=== PATIENT | male | born 1955 | race Caucasian/White ===

== ENCOUNTER → 2018-03-04 09:27 | Outpatient (BNVA) | payer MEDICARE, SELFPAY | PROVIDERS: PCP Nurse Practitioner Family; Visit Provider Student in an Organized Health Care Education/Training Program | DX: M25.552 Pain in left hip (principal); Z96.642 Presence of left artificial hip joint | CPT/HCPCS: 99213 ==

== ENCOUNTER 2018-03-25 16:58 | Outpatient (CLI) | payer MEDICARE, SELFPAY ==
--- NOTE | 2018-03-25 15:25 | DI.CTLCSR_ITS ---
SYMPTOM/DIAGNOSIS: COPD, J44.9. CURRENT SMOKER F17.[address] LUNG CANCER SCREENING PROTOCOL: 03/25 CT examination of the chest was performed utilizing low dose lung cancer screening protocol. Images obtained through the upper abdomen show previous cholecystectomy and unremarkable appearance of visualized portions of kidneys, adrenals, liver, spleen and pancreas. No gross mediastinal adenopathy or mass identified on this noncontrast study. Thoracic aorta is of normal diameter. Tracheobronchial tree appears intact. Mild bilateral apical pleural scarring noted and minimal pulmonary parenchymal scarring is noted predominantly in the lung bases as well. There appears to be mild diffuse central lobular emphysema. No suspicious intrapulmonary nodule identified. No significant change in appearance in comparison with previous examination of 04/05/2017. Presumed 3 mm intrapulmonary lymph node is again noted associated with the minor fissure on the right. CONCLUSION: No new intrapulmonary nodule. Category 1, continual annual screening with LDCT in 12 months. Lung-RAD Category: Lung RADS Category 1- Negative
== END 2018-03-25 17:18 ==
PROVIDERS: PCP Nurse Practitioner Family; Visit Provider Internal Medicine
DX: Z12.2 Encounter for screening for malignant neoplasm of respiratory organs (principal); J44.9 Chronic obstructive pulmonary disease, unspecified; F17.210 Nicotine dependence, cigarettes, uncomplicated; J43.9 Emphysema, unspecified; J98.4 Other disorders of lung; R59.0 Localized enlarged lymph nodes
CPT/HCPCS: G0297

== ENCOUNTER 2018-04-27 22:27 | Emergency (ER) | payer MEDICARE, SELFPAY ==
[2018-04-27 22:46] VITALS: BP 145/75; PULSE 76; RESP 18; TEMP 36.6; O2SAT 95
--- NOTE | 2018-04-27 22:52 | ED.GENADUL_ITS ---
Discharge Plan Disposition Patient Disposition: HOME Condition: Improving Discharge Details Chief Complaint: Trauma Clinical Impression: Contusion of left chest wall Primary Care Provider: Cathy Elliott ED Provider: Trent Unger Home Meds and New Rx's Prescriptions: Continue venlafaxine [Effexor XR] 75 MG capsule,extended release 24hr 75 mg PO DAILY RF: 0 losartan 50 MG tablet 50 mg PO DAILY RF: 0 trazodone 50 MG tablet 2 tab PO HS RF: 0 simvastatin 20 MG tablet 20 mg PO DAILY RF: 0 ropinirole 0.5 MG tablet 0.5 mg PO HS RF: 0 zolpidem [Ambien] 10 MG tablet 0.5 mg PO HS RF: 0 albuterol sulfate [ProAir HFA] 8.5 GM HFA aerosol inhaler 2 puff Inhalation Q6H PRN RF: 0 omeprazole [Prilosec] 10 MG capsule,delayed release(DR/EC) 20 mg PO DAILY RF: 0 montelukast [Singulair] 10 MG tablet 10 mg PO DAILY RF: 0 fluticasone propionate (bulk) 100 GM powder 100 gm Miscellaneous DAILY RF: 0 omeprazole 20 MG capsule,delayed release(DR/EC) 40 mg PO DAILY RF: 0 lamotrigine 100 MG tablet 100 mg PO DAILY RF: 0 magnesium oxide 500 MG capsule 500 mg PO DAILY RF: 0 vacuum erection device system [Rapport Vacuum Therapy] 1 EACH kit 1 ea Miscellaneous PRN Qty: 1 RF: 0 calcium carbonate [Tums] 300 MG tablet,chewable 1,000 mg PO DAILY RF: 0 acetaminophen 500 MG tablet 1,000 mg PO BID RF: 0 montelukast [Singulair] 10 MG tablet 10 mg PO DAILY RF: 0 inhalational spacing device [Aerochamber MV] 1 EACH spacer 1 ea Miscellaneous RF: 0 aspirin 81 MG tablet,chewable 81 mg PO DAILY RF: 0 Discharge Instructions Instructions: Contusion in Adults (ED) Additional Instructions: Return if you develop a fever, difficulty breathing, worsening pain or any other acute concerns. May use ibuprofen as needed for discomfort. May use the provided hydrocodone, if needed for breakthrough pain. Medical Decision Making 62-year-old male presents from home with left the rectal abdomen pain after slip and fall with blunt trauma. Has unremarkable vital signs but tender in the left chest and abdomen. Differential diagnosis includes contusion, rib fracture, underlying visceral injury such as splenic laceration. Patient had IV access established, given parenteral analgesia, referred for laboratory testing and CT images. Patient labs are essentially unremarkable. CT does not show any acute bony thoracic or visceral injury. Patient's pain is improved. He is stable and appropriate for outpatient management of left chest wall contusion. Discussed return precautions to the ER with the patient and his prior to discharge. Lab Data Lab results reviewed: Yes I reviewed the patient's lab results. Laboratory Tests Range/Units 04/27/18 04/27/18 23:20 23:20 WBC (4.4-10.8) k/cumm 9.46 RBC (4.50-6.00) m/cumm 4.43 L Hgb (13.5-17.5) g/dL 14.3 Hct (40.0-50.0) % 42.9 MCV (80-95) fL 96.8 H MCH (27.0-33.0) pg 32.3 MCHC (32.0-36.0) g/dL 33.3 RDW (11.8-14.1) % 12.7 Plt Count (130-400) x1000/uL 418 H MPV (8.0-11.0) fL 8.6 Immature Gran % 0.0 Neutrophils % 53.0 Lymphocytes % 18.0 Monocytes % 10.0 Eosinophils % 5.0 Basophils % 0.0 Absolute Neutrophils (1.2-6.7) k/cumm 5.01 Band Neutrophils % 0.0 Absolute Lymphocytes (1.2-3.4) k/cumm 3.03 Absolute Monocytes (0.11-0.7) k/cumm 0.95 H Absolute Eosinophils (0.0-0.7) k/cumm 0.47 Absolute Basophils (0.0-0.2) k/cumm 0.00 Differential Comment Manual differential Atypical Lymphocytes 14 RBC Morphology Normal Sodium (136-145) mmol/L 141 Potassium (3.5-5.1) mmol/L 3.6 Chloride (98-107) mmol/L 103 Carbon Dioxide (21.0-32.0) mmol/L 28.0 Anion Gap (3-11) mmol/L 10.0 BUN (7-18) mg/dL 7 Creatinine (0.70-1.30) mg/dL 1.35 H Estimated GFR/1.73 m2 (mL/min/1.73m2) 53.73 Glucose (70-100) mg/dL 96 Calcium (8.5-10.1) mg/dL 8.9 Total Bilirubin (0.2-1.0) mg/dL 0.2 AST (15-37) U/L 43 H ALT (12-78) U/L 58 Alkaline Phosphatase (46-116) U/L 97 Total Protein (6.4-8.2) g/dL 7.4 Albumin (3.4-5.0) g/dL 3.3 L HPI General Mode of arrival: ambulatory . Date/Time Provider Initiated Documentation: 04/27/18 22:28 . Limitations to Documentation: no limitations . Information obtained by: patient . History of Present Illness 62 year old M presents to the emergency department with the chief complaint of Blunt trauma left side,, described as moderate, Quality is described as aching, and is localized to the chest and abdomen. Patient abdomen. Patient started experiencing this hour(s) and it has been constant. No relieving factors improve symptom(s), Movement worsens symptoms . HPI Narrative: 62-year-old male presents after slip and fall at home. He slipped on the white line and fell onto his left side and slowly developed moderate left-sided achy chest and abdomen pain that is been worse with movement. Related Data Home Medications Medication Instructions Recorded Confirmed albuterol sulfate [ProAir HFA] 2 puff INHALATION Q6H PRN inhaler 06/10/1404/28 losartan 50 mg PO DAILY tab-cap 06/10/14 04/28/18 ropinirole 0.5 mg PO HS 06/10/14 04/28/18 simvastatin 20 mg PO DAILY tab-cap 06/10/14 04/28/18 trazodone 2 tab PO HS 06/10/14 04/28/18 venlafaxine [Effexor XR] 75 mg PO DAILY tab-cap 06/10/14 04/28/18 zolpidem [Ambien] 0.5 mg PO HS 06/10/14 04/28/18 omeprazole [Prilosec] 20 mg PO DAILY tab-cap 11/11/14 04/28/18 fluticasone propionate (bulk) 100 gm MISCELLANEOUS DAILY 11/13/14 04/28/18 montelukast [Singulair] 10 mg PO DAILY tab-cap 11/13/14 04/28/18 lamotrigine 100 mg PO DAILY tab-cap 02/13/17 04/28/18 magnesium oxide 500 mg PO DAILY 02/13/17 04/28/18 omeprazole 40 mg PO DAILY tab-cap 02/13/17 04/28/18 vacuum erection device system #1 kit 04/24/17 [Rapport Vacuum Therapy] acetaminophen 1,000 mg PO BID tab-cap 11/20/17 04/28/18 calcium carbonate [Tums] 1,000 mg PO DAILY tab.chew 11/20/17 04/28/18 inhalational spacing device 11/20/17 [Aerochamber MV] montelukast [Singulair] 10 mg PO DAILY tab-cap 11/20/17 04/28/18 aspirin 81 mg PO DAILY tab-cap 11/27/17 04/28/18 Previous Rx's Medication Instructions Recorded vacuum erection device system #1 kit 04/24/17 [Rapport Vacuum Therapy] Allergies Allergy/AdvReac Type Severity Reaction Status Date / Time naproxen sodium [From Aleve] Allergy Intermediate itching/redness/difficulty Unverified 04/28/18 00:12 breathing varenicline tartrate Allergy Unverified 04/28/18 00:12 [From Chantix] lisinopril AdvReac renal Unverified 04/28/18 00:12 changes General Stated Complaint: Trauma TERESSA: 3 Review of Systems Review of Systems 8 systems reviewed and otherwise neg [facility] Medical History Abdominal aortic aneurysm Social History Smoking/Tobacco Use Status: Current every day Surgical History Cholecystectomy Cranial Aneurysm clipping EGD - MAC (06/14/16) Rt shoulder surgery for pinched nerve hernia/groin repair in teens Exam Narrative Exam Narrative: GEN: awake, alert, oriented 3. Pleasant, well groomed, interactive. HEAD: Normocephalic, atraumatic ENT: Mucous membranes moist, oropharynx unremarkable, External ear exam unremarkable EYES: PERRL, EOMI NECK: Full ROM, no LALA, no menigismus CHEST/RESP: Left lateral chest wall tender to palpation, clear to auscultation bilateral, no wheeze/rhonchi/rales CARDIOVASCULAR: RRR, no murmur, rub alex. 2+ Rad pulse bilateral ABDOMEN: Soft, tender in the left abdomen, no mass. +Bowel sounds EXT: Full ROM, no edema, no rash Neuro: Grossly normal neurologic exam, conversant, interactive. Psych: Speech fluent, thoughts congruent, affect normal Course Vital Signs Temperature 36.6 C 04/27/18 22:46 Pulse 76 04/27/18 22:46 Respiratory Rate 18 04/27/18 22:46 Blood Pressure 145/75 H 04/27/18 22:46 Pulse Oximetry 95 04/27/18 22:46 Temperature 36.6 C 04/27/18 22:46 Temperature Source Temporal Artery Scan 04/27/18 22:46 Pulse 76 04/27/18 22:46 Respiratory Rate 18 04/27/18 22:46 Blood Pressure 145/75 H 04/27/18 22:46 Blood Pressure Position Supine 04/27/18 22:46 Pulse Oximetry 95 04/27/18 22:46 Oxygen Delivery Method Room Air 04/27/18 22:46 Oxygen Flow Rate 0 04/27/18 22:46 Pain Level 8 04/27/18 22:46
[2018-04-27] MEDS: MORPHine 10 MG/ML VIAL 2 MG IVP (23:20)
[2018-04-27 23:31] LABS: Abs Immature Grans 0.03 k/cumm (0.0-0.09); HCT 42.9 % (40.0-50.0); HGB 14.3 g/dL (13.5-17.5); Mean Corp. HGB Concentration 33.3 g/dL (32.0-36.0); Mean Corpuscular Hemoglobin 32.3 pg (27.0-33.0); Mean Corpuscular Volume 96.8 fL (80-95); Mean Platelet Volume 8.6 fL (8.0-11.0); Platelet Count 418 x1000/uL (130-400); RBC 4.43 m/cumm (4.50-6.00); RBC Distribution Width 12.7 % (11.8-14.1); White Blood Cell Count 9.46 k/cumm (4.4-10.8)
[2018-04-27] MEDS: Lactated Ringers 1,000 ML 100 ML IV (23:34)
[2018-04-27 23:46] LABS: ALT 58 U/L (12-78); AST 43 U/L (15-37); Albumin 3.3 g/dL (3.4-5.0); Alkaline Phosphatase 97 U/L (46-116); BUN 7 mg/dL (7-18); Bilirubin, Total 0.2 mg/dL (0.2-1.0); CREATININE 1.35 mg/dL (0.70-1.30); Calcium 8.9 mg/dL (8.5-10.1); Chloride 103 mmol/L (98-107); Estimated GFR 53.73 (mL/min/1.73m2); Glucose 96 mg/dL (70-100); Potassium 3.6 mmol/L (3.5-5.1); Sodium 141 mmol/L (136-145); Total Protein 7.4 g/dL (6.4-8.2)
--- NOTE | 2018-04-27 23:50 | DI.CT_ITS ---
SYMPTOM/DIAGNOSIS: FALL, BLUNT TRAUMA, LT THORACO-ABDOMINAL PAIN CT CHEST, ABDOMEN AND PELVIS: CT scan of the chest, abdomen and pelvis was performed following the uneventful administration of intravenous contrast material. Comparison 03/25/18 and 12/13/17. The liver is normal in size. No evidence of an hepatic mass or ulceration is seen. The portal and superior mesenteric veins are patent. The patient is status post cholecystectomy. No biliary ductal dilatation is present./ The pancreas, spleen and adrenal glands are unremarkable. The kidneys show normal and symmetric enhancement. No solid renal mass, obstruction or laceration is identified. The urinary bladder is intact. The prostate gland is grossly unremarkable. The bowel is unremarkable. There is a normal appendix present. There is atherosclerosis of the abdominal aorta. There is 3.5 cm infra renal abdominal aortic aneurysm. No significant abdominal or pelvic adenopathy, ascites or pneumoperitoneum is present. The patient has a left total hip replacement which does cause artifact in the pelvis. No fracture is identified. IMPRESSION: 1. No evidence of an acute abdominal or pelvic injury. 2. 3.5 cm infra renal abdominal aortic aneurysm. CT CHEST: There is atherosclerosis of the thoracic aorta but no aneurysmal dilatation or dissection. Heart size is within normal limits. No significant pericardial effusion is seen. Coronary artery calcifications are present. No significant thoracic adenopathy is present. No pleural effusion or pneumothorax is identified. Dependent atelectatic changes are seen in the lungs. Emphysematous changes are present in the lungs. No focal consolidating infiltrates are seen. No fractures are seen. IMPRESSION: No evidence of acute thoracic injury.
[2018-04-27 23:54] LABS: Absolute Neutrophil Count 5.01 k/cumm (1.2-6.7)
[2018-04-27 23:55] LABS: Absolute Eosinophil Count 0.47 k/cumm (0.0-0.7); Absolute Lymphocyte Count 3.03 k/cumm (1.2-3.4); Absolute Monocyte Count 0.95 k/cumm (0.11-0.7); Atypical Lymphocytes % 14; Diff Comment Manual Differential; RBC Morphology Normal
[2018-04-28 01:05] VITALS: BP 134/72; PULSE 77; RESP 16; O2SAT 95
--- NOTE | 2018-04-28 01:18 | DI.VRAD_ITS ---
EXAM: CT Chest With Intravenous Contrast EXAM DATE/TIME: 04/27/2018 10:50 PM CLINICAL HISTORY: 62 years old, male; Injury or trauma; Fall; Initial encounter; Abrasion; Patient HX: S/P fall hit ground, left thoraco-abdomen pain. Known aneurysm TECHNIQUE: Axial computed tomography images of the chest with intravenous contrast. All CT scans at this facility use at least one of these dose optimization techniques: automated exposure control; mA and/or kV adjustment per patient size (includes targeted exams where dose is matched to clinical indication); or iterative reconstruction. Coronal and sagittal reformatted images were created and reviewed. CONTRAST: 100 ml of OMNI-PAQUE 350 administered intravenously. COMPARISON: No relevant prior studies available. FINDINGS: Lungs: Paraseptal emphysema. Severe centrilobular emphysema. There is bilateral apical pleural and/or parenchymal scarring. Pleural space: Normal. No pneumothorax. No pleural effusion. Heart: Severe calcified coronary artery disease. Aorta: Calcification of the thoracic aorta and/or great vessels consistent with atherosclerotic vessel disease. Lymph nodes: Unremarkable. No enlarged lymph nodes. Bones/joints: Unremarkable. No acute fracture. Soft tissues: Unremarkable. IMPRESSION: 1. Paraseptal emphysema. 2. Severe centrilobular emphysema. 3. Severe calcified coronary artery disease. EXAM: CT Abdomen and Pelvis With Intravenous Contrast EXAM DATE/TIME: 04/27/2018 10:50 PM CLINICAL HISTORY: 62 years old, male; Injury or trauma; Fall; Initial encounter; Abrasion; Patient HX: S/P fall hit ground, left thoraco-abdomen pain. Known aneurysm TECHNIQUE: Axial computed tomography images of the abdomen and pelvis with intravenous contrast. All CT scans at this facility use at least one of these dose optimization techniques: automated exposure control; mA and/or kV adjustment per patient size (includes targeted exams where dose is matched to clinical indication); or iterative reconstruction. Coronal and sagittal reformatted images were created and reviewed. CONTRAST: 100 ml of OMNI-PAQUE 350 administered intravenously. COMPARISON: No relevant prior studies available. FINDINGS: Lower thorax: No acute findings. ABDOMEN: Liver: Normal. No mass. Gallbladder and bile ducts: Surgical clips in the gallbladder fossa consistent with cholecystectomy. Pancreas: Normal. No ductal dilation. Spleen: Normal. No splenomegaly. Adrenals: Normal. No mass. Kidneys and ureters: Normal. No hydronephrosis. Stomach and bowel: Normal. No obstruction. No mucosal thickening. Appendix: No evidence of appendicitis. PELVIS: Bladder: Unremarkable as visualized. Reproductive: Unremarkable as visualized. ABDOMEN and PELVIS: Intraperitoneal space: Normal. No free air. No significant fluid collection. Bones/joints: Left total hip replacement with metallic artifact partially obscuring the pelvic anatomy. Soft tissues: Unremarkable. Vasculature: 3.5 cm fusiform infrarenal abdominal aortic aneurysm without rupture. Measured on the sagittal images. Calcification of the abdominal aorta and/or iliac arteries consistent with atherosclerotic vessel disease. Lymph nodes: Normal. No enlarged lymph nodes. IMPRESSION: 3.5 cm fusiform infrarenal abdominal aortic aneurysm without rupture. Measured on the sagittal images. Dictated and Authenticated by: Roberto Carlos De Jesus MD. Ordering:SHANT GUZMAN MD
[2018-04-28] MEDS: HYDROcodone 5/Acetaminophen 325 TAB PO (01:48)
== END 2018-04-28 01:05 | disposition home or self-care (01) ==
PROVIDERS: Emergency Provider Emergency Medicine; PCP Nurse Practitioner Family
DX: S20.212A Contusion of left front wall of thorax, initial encounter (principal); W01.0XXA Fall on same level from slipping, tripping and stumbling without subsequent striking against object, initial encounter; J44.9 Chronic obstructive pulmonary disease, unspecified; F17.210 Nicotine dependence, cigarettes, uncomplicated; I10 Essential (primary) hypertension
CPT/HCPCS: 36415; 74177; 80053; 96361; 96374; 99285; 71260; 85025; 99284; J2270

== ENCOUNTER 2018-06-20 13:05 | Outpatient (CLI) | payer MEDICARE, SELFPAY ==
--- NOTE | 2018-06-20 14:00 | DI.RAD_ITS ---
SYMPTOMS/DIAGNOSIS: PAIN IN RIGHT ELBOW, M25.521, H/O ACCIDENTAL FALL, Z91.81 RIGHT ELBOW: Three projections of the elbow were obtained. There are rather severe degenerative changes involving the ulnar trochlear and radial capitellar joint. There is sclerosis and hypertrophic spurring, most prominent over the region of the coronoid process and adjacent joint space of the ulnar trochlear articulation. There is no evidence of a joint effusion. There is nothing to suggest an acute fracture or dislocation. SUMMARY: DJD. No evidence of an acute fracture or dislocation.
== END 2018-06-20 13:25 ==
PROVIDERS: PCP Nurse Practitioner Family; Visit Provider Nurse Practitioner Family
DX: M25.521 Pain in right elbow (principal); M19.021 Primary osteoarthritis, right elbow
CPT/HCPCS: 73080

== ENCOUNTER 2018-07-15 10:46 | Outpatient (CLI) | payer MEDICARE, SELFPAY ==
[2018-07-15 11:19] LABS: Abs Immature Grans 0.04 k/cumm (0.0-0.09); Absolute Basophil Count 0.06 k/cumm (0.0-0.2); Absolute Eosinophil Count 0.25 k/cumm (0.0-0.7); Absolute Lymphocyte Count 2.65 k/cumm (1.2-3.4); Basophils % 0.7; Eosinophils % 2.7; HCT 44.9 % (40.0-50.0); HGB 14.8 g/dL (13.5-17.5); Immature Grans % 0.4; Lymphocytes % 29.1; Mean Corpuscular Hemoglobin 32.2 pg (27.0-33.0); Mean Corpuscular Volume 97.8 fL (80-95); Mean Platelet Volume 8.6 fL (8.0-11.0); Monocytes % 18.7; Neutrophils % 48.4; Platelet Count 403 x1000/uL (130-400); RBC 4.59 m/cumm (4.50-6.00); RBC Distribution Width 12.8 % (11.8-14.1)
--- NOTE | 2018-07-15 11:24 | DI.RAD_ITS ---
SYMPTOMS/DIAGNOSIS: COUGH, HEMOPTYSIS, R04.02 CHEST: Frontal and lateral views. Comparison CT scan is 04/27/18. The heart size and pulmonary vasculature are within normal limits. The lungs are hyperinflated suggestive of underlying COPD. No infiltrates, effusions or pneumothoraces are identified. Age appropriate degenerative changes are seen in the spine. IMPRESSION: 1. COPD. 2. No acute pulmonary process.
[2018-07-15 11:45] LABS: ALT 34 U/L (12-78); AST 24 U/L (15-37); Albumin 3.4 g/dL (3.4-5.0); Alkaline Phosphatase 91 U/L (46-116); Anion Gap 8.3 mmol/L (3-11); BUN 9 mg/dL (7-18); Bilirubin, Total 0.2 mg/dL (0.2-1.0); CO2 26.7 mmol/L (21.0-32.0); CREATININE 1.42 mg/dL (0.70-1.30); Calcium 9.3 mg/dL (8.5-10.1); Chloride 103 mmol/L (98-107); Estimated GFR 50.52 (mL/min/1.73m2); Glucose 116 mg/dL (70-100); Potassium 3.8 mmol/L (3.5-5.1); Sodium 138 mmol/L (136-145); Total Protein 7.7 g/dL (6.4-8.2)
[2018-07-15 11:46] LABS: D-Dimer 500 ng/mlFEU (<500)
[2018-07-15 12:10] LABS: Diff Comment Diff Reviewed; RBC Morphology Normal
[2018-07-15 14:52] LABS: NT-proBNP 41 pg/mL
== END 2018-07-15 11:06 ==
PROVIDERS: PCP Nurse Practitioner Family; Visit Provider Nurse Practitioner Family
DX: R06.02 Shortness of breath (principal); R05 Cough; R04.2 Hemoptysis; J44.9 Chronic obstructive pulmonary disease, unspecified
CPT/HCPCS: 36415; 80053; 71046; 83880; 85025; 85379

== ENCOUNTER 2018-07-18 15:19 | Outpatient (CLI) | payer MEDICARE, SELFPAY ==
--- NOTE | 2018-07-18 14:52 | DI.CT_ITS ---
SYMPTOM/DIAGNOSIS: COUGH, HEMOPTYSIS, ELEVATED D DIMER, R05, R04.[address]: CT angiography was performed with multi slice acquisition and multi planar and 3D reconstruction. The study was conducted according to the usual protocol with an intravenous administration of 100 cc's of Omnipaque 350. There is no evidence of pulmonary embolic disease. Emphysematous and fibrotic changes are demonstrated in the lungs. There is no pleural effusion. There is no evidence of cardiomegaly or a pericardial effusion. There are mild atherosclerotic changes involving the aorta without evidence of an aneurysm. SUMMARY: No evidence of pulmonary embolic disease.
[2018-07-18] MEDS: Omnipaque 350 MG/ML 100 ML BTL IJ (14:57)
== END 2018-07-18 15:39 ==
PROVIDERS: PCP Nurse Practitioner Family; Visit Provider Nurse Practitioner Family
DX: R05 Cough (principal); R04.2 Hemoptysis; R79.1 Abnormal coagulation profile
CPT/HCPCS: 71275; J3490

== ENCOUNTER 2018-09-25 03:36 | Outpatient (CLI) | payer MEDICARE, SELFPAY ==
--- NOTE | 2018-09-25 10:16 | MERGE_ITS ---
*[facility]* *[facility]* [address] [place] [address] Date of study: 09/25/2018 Transthoracic Echocardiography M-mode, complete 2D, complete spectral Doppler, and color Doppler *STUDY CONCLUSIONS* Summary: 1. Left ventricle: The cavity size was normal. Wall thickness was increased in a pattern of mild LVH. There was mild to moderate asymmetric hypertrophy of the septum. Systolic function was normal. The estimated ejection fraction was 60-65%. There was no dynamic obstruction. Wall motion was normal; there were no regional wall motion abnormalities. 2. Right ventricle: The cavity size was normal. Wall thickness was normal. Systolic function was normal. *PATIENT PRESENTATION* Height: 167.6cm ((66in) ) S/D Pressure: 135 / 70 Weight: 85.7kg ((188.6lb) ) BSA: 2.02m^2 Test start time: 10:20 AM. Test stop time: 11:15 AM. PERFORMING Unknown ORDERING Cathy Elliott Aprn REFERRING Cathy Elliott Aprn *PROCEDURE DATA* Procedure information: The patient was identified by two identifiers. This study was interpreted by [facility]. Pertinent images and digital data are archived for permanent storage and are available for subsequent review. Comparison was made to the study of 10/10/2016. Study status: Routine. Transthoracic echocardiography. M-mode, complete 2D, complete spectral Doppler, and color Doppler. A Transthoracic Echocardiogram was performed. Scanning was performed from the parasternal, apical, subcostal, and suprasternal notch acoustic windows. Images were obtained using an [id number] cardiac ultrasound machine. Image quality was adequate. Study completion: The patient tolerated the procedure well. There were no complications. History: PMH: Near syncope, fainting episodes R55 *CARDIAC ANATOMY* Left ventricle: The cavity size was normal. Wall thickness was increased in a pattern of mild LVH. There was mild to moderate asymmetric hypertrophy of the septum. Systolic function was normal. The estimated ejection fraction was 60-65%. There was no dynamic obstruction. Wall motion was normal; there were no regional wall motion abnormalities. Diastolic parameters were normal. Aortic valve: Trileaflet; normal thickness, mildly calcified leaflets. Mobility was not restricted. Doppler: Transvalvular velocity was within the normal range. There was no stenosis. There was no significant regurgitation. VTI ratio of LVOT to aortic valve: 0.78. Valve area (VTI): 2.3cm^2. Indexed valve area (VTI): 1.2cm^2/m^2. Peak velocity ratio of LVOT to aortic valve: 0.78. Valve area (Vmax): 2.3cm^2. Indexed valve area (Vmax): 1.2cm^2/m^2. Mean velocity ratio of LVOT to aortic valve: 0.77. Valve area (Vmean): 2.3cm^2. Indexed valve area (Vmean): 1.1cm^2/m^2. Mean gradient (S): 6.6mm Hg. Peak gradient (S): 12.2mm Hg. Aorta: Aortic root: The aortic root was normal in size. Ascending aorta: The ascending aorta was normal in size. Mitral valve: Structurally normal valve. Mobility was not restricted. Doppler: Transvalvular velocity was within the normal range. There was no evidence for stenosis. There was no significant regurgitation. Valve area by pressure half-time: 3.8cm^2. Indexed valve area by pressure half-time: 1.9cm^2/m^2. Peak gradient (D): 2mm Hg. Left atrium: The atrium was normal in size. Right ventricle: The cavity size was normal. Wall thickness was normal. Systolic function was normal. Pulmonic valve: Doppler: Transvalvular velocity was within the normal range. There was no evidence for stenosis. There was trivial regurgitation. Peak gradient (S): 3.7mm Hg. Tricuspid valve: Structurally normal valve. Doppler: Transvalvular velocity was within the normal range. There was no evidence for stenosis. There was no significant regurgitation. Pulmonary artery: Systolic pressure could not be accurately estimated. Right atrium: The atrium was normal in size. Pericardium: There was no pericardial effusion. Systemic veins: Inferior vena cava: Not well visualized. The vessel was patent and normal in size. The respirophasic diameter changes were in the normal range (greater than or equal to 50%). Baseline ECG: Normal sinus rhythm. Measurements Left ventricle Value 10/10/2016 Reference LV ID, ED, PLAX 4.3 cm 4.2 3.5 - 6.0 LV ID, ES, PLAX 2.6 cm 2.4 2.1 - 4.0 LV PW thickness, ED, PLAX 1.2 cm 1.2 LV end-diastolic volume, 53 ml 1-p A2C LV ejection fraction, 1-p 58 % 61 A2C LV end-diastolic volume, 49 ml 1-p A4C LV ejection fraction, 1-p 56 % 63 A4C LV e', lateral 0.124 m/sec LV E/e', lateral 6 LV e', medial 0.083 m/sec LV E/e', medial 8 LV e', average 0.104 m/sec LV E/e', average 7 Ventricular septum Value 10/10/2016 Reference IVS thickness, ED, PLAX 1.2 cm 1.3 LVOT Value 10/10/2016 Reference LVOT ID, A-P 2.0 cm 2.1 LVOT area 3 cm^2 3.3 LVOT peak velocity, S 1.36 m/sec 1.18 LVOT mean velocity, S 0.95 m/sec LVOT VTI, S 25.1 cm 23.5 LVOT peak gradient, S 7.4 mm Hg 5.6 LVOT mean gradient, S 4.1 mm Hg 2.2 Stroke volume (SV), LVOT 75 ml DP Stroke index (SV/bsa), 37 ml/m^2 LVOT DP Aortic valve Value 10/10/2016 Reference Aortic valve peak 1.7 m/sec velocity, S Aortic valve mean 1.24 m/sec velocity, S Aortic valve VTI, S 32.0 cm Aortic mean gradient, S 6.6 mm Hg Aortic peak gradient, S 12.2 mm Hg VTI ratio, LVOT/AV 0.78 Aortic valve area, VTI 2.3 cm^2 3.2 Velocity ratio, peak, 0.78 0.96 LVOT/AV Aortic valve area, peak 2.3 cm^2 3.2 velocity Velocity ratio, mean, 0.77 LVOT/AV Aortic valve area, mean 2.3 cm^2 velocity Aortic valve area/bsa, 1.1 cm^2/m^2 mean velocity Aorta Value 10/10/2016 Reference Aortic root ID, ED 3.5 cm 3.4 Ascending aorta ID, A-P, S 3.2 cm 3.3 Left atrium Value 10/10/2016 Reference LA ID, A-P, ES 3.0 cm LA ID/bsa, A-P 1.5 cm/m^2 <=2.2 LA area, ES, A4C 19 cm^2 16 8.8 - 23.4 LA area, ES, A2C 13 cm^2 19 LA volume/bsa, ES, 1-p A4C 32 ml/m^2 28 LA volume, ES, 2-p 38 ml LA volume/bsa, ES, 2-p 19 ml/m^2 LA/aortic root ratio 0.87 0.88 Mitral valve Value 10/10/2016 Reference Mitral E-wave peak 0.71 m/sec 0.77 velocity Mitral A-wave peak 0.68 m/sec 0.72 velocity Mitral deceleration time 199 ms 150 - 230 Mitral pressure half-time 58 ms 56 Mitral peak gradient, D 2 mm Hg 2.4 Mitral E/A ratio, peak 1.04 1.07 Mitral valve area, PHT, DP 3.8 cm^2 3.9 Pulmonary veins Value 10/10/2016 Reference Pulmonary vein peak 0.72 m/sec 0.63 velocity, S Pulmonary vein peak 0.52 m/sec 0.45 velocity, D Pulmonary vein velocity 1.4 1.38 ratio, peak, S/D Pulmonary vein A-wave 0.47 m/sec 0.29 reversal peak velocity Pulmonary vein A-wave 138 ms 145 reversal duration Tricuspid valve Value 10/10/2016 Reference Tricuspid regurg peak 3.1 m/sec 2 velocity Tricuspid peak RV-RA 39.2 mm Hg 16.3 gradient Right atrium Value 10/10/2016 Reference RA area, ES, A4C 15.6 cm^2 17.5 8.3 - 19.5 Pulmonic valve Value 10/10/2016 Reference Pulmonic peak gradient, S 3.7 mm Hg 3.1 Legend: (L) and (H) walker values outside specified reference range. I have personally reviewed the images and have reviewed and edited the reported findings. Electronically signed by Juventino Ojeda 09/25/2018 11:50
== END 2018-09-25 03:56 ==
PROVIDERS: PCP Nurse Practitioner Family; Visit Provider Nurse Practitioner Family
DX: R55 Syncope and collapse (principal); I51.7 Cardiomegaly
CPT/HCPCS: 93306

== ENCOUNTER 2018-09-26 01:32 | Outpatient (CLI) | payer MEDICARE, SELFPAY ==
--- NOTE | 2018-10-01 11:37 | HOLT_ITS ---
DATE OF DICTATION: October 01, 2018 REQUESTING PROVIDER: Cathy Elliott N.P. INDICATION: Near syncope. FINDINGS: The patient was monitored for two days. Baseline rhythm is sinus rhythm. Average heart rate 90 beats per minutes, range 67 226 bpm 4 PVC's. There was no ventricular tachycardia. 24 PAC's. There was a single 4-beat atrial run with a maximum heart rate of 147 bpm. There were no pauses greater than 3 seconds. There was no higher degree heart block. There were no patient events. FINAL INTERPRETATION: Minor atrial arrhythmias of no significance.
== END 2018-09-26 01:52 ==
PROVIDERS: PCP Nurse Practitioner Family; Visit Provider Nurse Practitioner Family
DX: R55 Syncope and collapse (principal); I49.1 Atrial premature depolarization
CPT/HCPCS: 93225

== ENCOUNTER 2018-09-30 18:07 | Outpatient (CLI) | payer MEDICARE, SELFPAY | END 2018-09-30 18:27 | PROVIDERS: PCP Nurse Practitioner Family; Visit Provider Nurse Practitioner Family | DX: R55 Syncope and collapse (principal); I49.1 Atrial premature depolarization | CPT/HCPCS: 93226 ==

== ENCOUNTER 2018-10-01 09:27 | Outpatient (CLI) | payer MEDICARE, SELFPAY | END 2018-10-01 09:47 | PROVIDERS: PCP Nurse Practitioner Family; Referring Provider Nurse Practitioner Family; Visit Provider Student in an Organized Health Care Education/Training Program | DX: R55 Syncope and collapse (principal); I49.1 Atrial premature depolarization | CPT/HCPCS: 93227 ==

== ENCOUNTER 2018-10-04 15:47 | Outpatient (REF) | payer MEDICARE, SELFPAY ==
[2018-10-04 21:26] LABS: ALT 32 U/L (12-78); AST 20 U/L (15-37); Alkaline Phosphatase 81 U/L (46-116); Anion Gap 12.4 mmol/L (3-11); BUN 9 mg/dL (7-18); Bilirubin, Total 0.3 mg/dL (0.2-1.0); CO2 26.6 mmol/L (21.0-32.0); CREATININE 1.22 mg/dL (0.70-1.30); Calcium 9.6 mg/dL (8.5-10.1); Chloride 100 mmol/L (98-107); Glucose 104 mg/dL (70-100); Magnesium 2.2 mg/dL (1.8-2.4); Potassium 4.4 mmol/L (3.5-5.1); Sodium 139 mmol/L (136-145)
[2018-10-04 22:17] LABS: Vitamin B12 263 pg/mL (193-986)
== END 2018-10-04 16:07 ==
LOC: NCHCN 15:47
PROVIDERS: PCP Nurse Practitioner Family; Visit Provider Nurse Practitioner Family
DX: R68.2 Dry mouth, unspecified (principal); R51 Headache; G47.00 Insomnia, unspecified; G25.81 Restless legs syndrome; F17.210 Nicotine dependence, cigarettes, uncomplicated; I77.9 Disorder of arteries and arterioles, unspecified; I51.7 Cardiomegaly
CPT/HCPCS: 80053; 82607; 83735

== ENCOUNTER 2018-10-18 02:14 | Outpatient (CLI) | payer MEDICARE, SELFPAY ==
--- NOTE | 2018-10-18 10:10 | DI.US_ITS ---
SYMPTOM/DIAGNOSIS: CAROTID ARTERIAL DISEASE, I77.9, NEAR SYNCOPE, R55 CAROTID ULTRASOUND: There is mild calcific plaque in both common carotid bulbs. There is elevated systolic velocity in both external carotid arteries. The velocity measurements within the internal carotid arteries are within the normal range. The vertebral arteries show antegrade flow. IMPRESSION: Mild calcific plaque. There is no evidence of significant internal carotid artery stenosis. Elevated systolic velocity is seen in both external carotid arteries.
== END 2018-10-18 02:34 ==
PROVIDERS: PCP Nurse Practitioner Family; Visit Provider Nurse Practitioner Family
DX: R55 Syncope and collapse (principal); I77.9 Disorder of arteries and arterioles, unspecified
CPT/HCPCS: 93880

== ENCOUNTER 2018-11-14 00:02 | Outpatient (RCR) | payer MEDICARE, SELFPAY | END 2018-11-22 23:59 | disposition home or self-care (01) | LOC: PRC 00:02 | PROVIDERS: PCP Nurse Practitioner Family; Visit Provider Family Medicine | DX: Z51.89 Encounter for other specified aftercare (principal) ==

== ENCOUNTER 2018-11-18 11:35 | Emergency (ER) | payer MEDICARE, SELFPAY ==
[2018-11-18] VITALS (28 sets, daily range): BP systolic 118–166; BP diastolic 63–80; PULSE 75–92; RESP 13–24; TEMP 37; O2SAT 85–96
--- NOTE | 2018-11-18 12:26 | DI.CT_ITS ---
SYMPTOM/DIAGNOSIS: RT CHEST PAIN AFTER FALL, CONTUSION RT RIBS CHEST/ABDOMEN AND PELVIC CT: Comparison is made with 04/27/18. ABDOMEN AND PELVIS: The liver is normal in size. There does appear to be decreased attenuation suggesting fatty infiltration. No hepatic mass is seen. The portal, superior mesenteric and splenic veins are patent. The patient is status post cholecystectomy. No biliary ductal dilatation is present. The pancreas, spleen and adrenal glands are unremarkable as are the kidneys, ureters and bladder. The reproductive organs are grossly unremarkable. There is artifact in the pelvis due to the patient's left total hip replacement. The bowel shows no evidence of obstruction or inflammation. There is a normal appendix present. There is again seen a 3.6 cm. infrarenal abdominal aortic aneurysm. No evidence of dissection is seen. No significant abdominal or pelvic adenopathy, ascites or pneumoperitoneum is present. The bones appear intact. IMPRESSION: No evidence of an acute abdomen or pelvis. CHEST: There is atherosclerosis of the thoracic aorta but no aneurysm or dissection is seen. Heart size is within normal limits. No significant pericardial effusion is present. There are coronary artery calcifications seen. No significant thoracic adenopathy is present. No pleural effusion or pneumothorax is identified. There are bilateral infiltrates seen in the lungs which may represent atelectasis or scarring. Pneumonia cannot be excluded. Emphysematous changes are seen in the lungs. The tracheobronchial tree is unremarkable. Mildly displaced fractures are seen involving the lateral aspects of the right eighth and ninth ribs. IMPRESSION: Mildly displaced fractures involving the lateral aspects of the right eighth and ninth ribs. No pneumothorax. Bilateral dependent infiltrates. These may represent atelectasis or pneumonia.
--- NOTE | 2018-11-18 13:02 | W.ED.GENAD ---
Discharge Plan Disposition Patient Disposition: HOME Condition: Good Discharge Details Chief Complaint: Chest/Rib Clinical Impression: Right rib fracture Primary Care Provider: Cathy Elliott ED Provider: Willam Clark Home Meds and New Rx's Prescriptions: New acetaminophen [Mapap Extra Strength] 500 MG tablet 1,000 mg PO Q6H 5 Days Qty: 60 RF: 0 lidocaine [Lidoderm] 1 PATCH patch 1 patch Topical Q24H Qty: 4 RF: 0 No Action venlafaxine [Effexor XR] 75 MG capsule,extended release 24hr 75 mg PO DAILY RF: 0 losartan 50 MG tablet 50 mg PO DAILY RF: 0 simvastatin 20 MG tablet 20 mg PO DAILY RF: 0 ropinirole 0.5 MG tablet 0.5 mg PO HS RF: 0 zolpidem [Ambien] 10 MG tablet 0.5 mg PO HS RF: 0 albuterol sulfate [ProAir HFA] 8.5 GM HFA aerosol inhaler 2 puff Inhalation Q6H PRN RF: 0 fluticasone propionate (bulk) 100 GM powder 100 gm Miscellaneous DAILY RF: 0 omeprazole 20 MG capsule,delayed release(DR/EC) 40 mg PO DAILY RF: 0 lamotrigine 100 MG tablet 100 mg PO DAILY RF: 0 magnesium oxide 500 MG capsule 500 mg PO DAILY RF: 0 vacuum erection device system [Rapport Vacuum Therapy] 1 EACH kit 1 ea Miscellaneous PRN Qty: 1 RF: 0 calcium carbonate [Tums] 300 MG tablet,chewable 1,000 mg PO DAILY RF: 0 acetaminophen 500 MG tablet 1,000 mg PO BID RF: 0 montelukast [Singulair] 10 MG tablet 10 mg PO DAILY RF: 0 inhalational spacing device [Aerochamber MV] 1 EACH spacer 1 ea Miscellaneous RF: 0 aspirin 81 MG tablet,chewable 81 mg PO DAILY RF: 0 Stiolto Respimat 2.5-2.5 mcg/actuation Mist 2 puff Inhalation DAILY RF: 0 Discharge Instructions Instructions: Rib Fracture (ED) Additional Instructions: Please use the Lidoderm patch and Tylenol as directed. Please use the incentive spirometer and take deep breaths, and make sure you are getting more than 1000 mL with each breath. Use the incentive spirometer multiple times throughout the day. If you notice any worsening of your symptoms, or any new symptoms such as vomiting, diarrhea, fever, chills, shortness of breath, chest pain, numbness, weakness, or fainting , please return immediately to the emergency department for reevaluation. Please follow up with your primary care provider as soon as possible for reassessment and reevaluation. As always, it was a pleasure participating in your medical care today. Referrals: Cathy Elliott [Primary Care Provider] - Medical Decision Making This is a 63-year-old male with a past medical history of COPD on oxygen, who presents today for evaluation of right rib pain. He slipped on a chair while trying to hang something up, and a chair and shovel caught the right side of his ribs. He has had significant pain since then. Pain is made worse with movement, breathing, and palpation. Exam demonstrates stable vital signs with an oxygen at 90% on room air, he normally is on some supplemental oxygen. No tachycardia. Due to his mechanism, abdominal tenderness and chest wall tenderness we will get a CT scan to evaluate for fracture, bleed, or other acute process. No clinical evidence of tension pneumothorax at this time. 4:[address] results have returned and per virtual radiology there is evidence of fracture of the eighth and ninth rib, no pneumothorax, no free fluid, no other acute traumatic pathology per virtual radiology. With the patient's notable pain and rib fracture we did contact anesthesia to place a rib block. We are pending completion of this at this time. We will have respiratory therapy do incentive spirometry training. Recommend continued NSAIDs at home, Lidoderm patch, and close follow-up with his PCP. Case will be signed out to my colleague Dr. Oakes for final disposition after block. I have extensively reviewed the treatment plan and discharge instructions with the patient and their family. I have addressed all patient concerns at this time. The patient and family was made aware of what symptoms to monitor for that would warrant a return to the emergency department. Discussed the plan with the patient and family, they demonstrate verbal understanding and agreement with our assessment and plan at this time. EKG 12: 56 Rate 75, intervals normal, sinus rhythm, nonspecific ST depressions in V4 V5 and V6, no reciprocal ST elevation. No significant Q waves. No prior EKG for comparison. CLINICAL HISTORY: 63 years old, male; Signs and symptoms; Other: Right cp after fall/contusion R ribs TECHNIQUE: Imaging protocol: Axial computed tomography images of the chest with intravenous contrast. Coronal and sagittal reformatted images were created and reviewed. Radiation optimization: All CT scans at this facility use at least one of these dose optimization techniques: automated exposure control; mA and/or kV adjustment per patient size (includes targeted exams where dose is matched to clinical indication); or iterative reconstruction. COMPARISON: CT Abdomen^CAP WITH (Adult) 04/27/2018 11:35 PM FINDINGS: There is bibasilar dependent atelectasis/infiltrate. No pleural effusion or pneumothorax. There are mild emphysematous changes. Normal thoracic aorta. No mediastinal hematoma. There are slightly displaced acute fractures of the lateral right eighth and ninth ribs. IMPRESSION: Right eighth and ninth rib fractures. No pneumothorax. EXAM: CT Abdomen and Pelvis With Contrast EXAM DATE/TIME: 11/18/2018 12:29 PM CLINICAL HISTORY: 63 years old, male; Signs and symptoms; Other: Right cp after fall/contusion R ribs TECHNIQUE: Imaging protocol: Axial computed tomography images of the abdomen and pelvis with intravenous contrast. Coronal and sagittal reformatted images were created and reviewed. Radiation optimization: All CT scans at this facility use at least one of these dose optimization techniques: automated exposure control; mA and/or kV adjustment per patient size (includes targeted exams where dose is matched to clinical indication); or iterative reconstruction. Contrast material: OMNIPAQUE 350; Contrast volume: 100 ml; Contrast route: IV; COMPARISON: CT Abdomen^CAP WITH (Adult) 04/27/2018 11:35 PM FINDINGS: No evidence of solid organ injury. There is fatty infiltration of the liver. Status post cholecystectomy. Unremarkable kidneys, adrenal glands, pancreas and spleen. There is a stable infrarenal abdominal aortic aneurysm measuring approximately 3.5 cm. No evidence of dissection or rupture. No evidence of bowel injury or obstruction. Normal appendix. Normal urinary bladder. No free fluid or free air. There is a left hip replacement. No acute fracture. IMPRESSION: No acute findings. Dictated and Authenticated by: Lino Montes De Oca MD. Ordering:TICO Quarles MD HPI General Date/Time Provider Initiated Documentation: 11/18/18 12:21. HPI Narrative: This is a 63-year-old male with a past medical history of COPD, AAA, on 5% oxygen at home, who presents today for right rib pain. The patient states that yesterday he was trying to hang something up when he slipped and a shovel in chair caught him under the right ribs. He has had significant pain since then. His pain is been unremitting. It is notably severe, worse with breathing, palpation and movement. He denies any vomiting or diarrhea. He denies any headache, numbness, tingling or weakness. He denies any other complaints or any other trauma. He is not on any blood thinners. He denies recent surgeries. He denies pertinent family history. Related Data Home Medications Medication Instructions Recorded Confirmed albuterol sulfate [ProAir HFA] 2 puff INHALATION Q6H PRN inhaler 06/10/14 11/18/18 losartan 50 mg PO DAILY tab-cap 06/10/14 11/18/18 ropinirole 0.5 mg PO HS 06/10/14 11/18/18 simvastatin 20 mg PO DAILY tab-cap 06/10/14 11/18/18 venlafaxine [Effexor XR] 75 mg PO DAILY tab-cap 06/10/14 11/18/18 zolpidem [Ambien] 0.5 mg PO HS 06/10/14 11/18/18 fluticasone propionate (bulk) 100 gm MISCELLANEOUS DAILY 11/13/14 11/18/18 lamotrigine 100 mg PO DAILY tab-cap 02/13/17 11/18/18 magnesium oxide 500 mg PO DAILY 02/13/17 11/18/18 omeprazole 40 mg PO DAILY tab-cap 02/13/17 11/18/18 vacuum erection device system #1 kit 04/24/17 [Rapport Vacuum Therapy] acetaminophen 1,000 mg PO BID tab-cap 11/20/17 11/18/18 calcium carbonate [Tums] 1,000 mg PO DAILY tab.chew 11/20/17 11/18/18 inhalational spacing device 11/20/17 [Aerochamber MV] montelukast [Singulair] 10 mg PO DAILY tab-cap 11/20/17 11/18/18 aspirin 81 mg PO DAILY tab-cap 11/27/17 11/18/18 acetaminophen [Mapap Extra 1,000 mg PO Q6H 5 Days #60 tab 11/18/18 Strength] lidocaine [Lidoderm] 1 patch TOPICAL Q24H #4 patch 11/18/18 tiotropium-olodaterol [Stiolto 2 puff INHALATION DAILY 11/18/18 11/18/18 Respimat] Previous Rx's Medication Instructions Recorded vacuum erection device system #1 kit 04/24/17 [Rapport Vacuum Therapy] acetaminophen [Mapap Extra 1,000 mg PO Q6H 5 Days #60 tab 11/18/18 Strength] lidocaine [Lidoderm] 1 patch TOPICAL Q24H #4 patch 11/18/18 Allergies Allergy/AdvReac Type Severity Reaction Status Date / Time naproxen sodium [From Aleve] Allergy Intermediate itching/redness/difficulty Unverified 11/18/18 11:53 breathing varenicline tartrate Allergy Unverified 11/18/18 11:53 [From Chantix] lisinopril AdvReac renal Unverified 11/18/18 11:53 changes General Stated Complaint: Chest Pain TERESSA: 3 Review of Systems Review of Systems All systems reviewed & are unremarkable except as noted in HPI and below PFSH Surgical History Cholecystectomy Cranial Aneurysm clipping EGD - [facility] (06/14/16) Rt shoulder surgery for pinched nerve hernia/groin repair in teens Social History Smoking/Tobacco Use Status: Current every day Tobacco Type: cigarettes Alcohol Intake: current Alcohol Intake frequency: a few times a week Alcohol type: beer Drug use: Never Do you feel safe in your relationship?: Yes Exam Narrative Exam Narrative: 1.Const: Well-nourished, Well-developed, appearing stated age 2.Eyes: PERRL, no conjunctival injection, and symmetrical lids. 3.ENT: Atraumatic external nose and ears. Moist MM. Neck: Symmetric, trachea midline, No thyromegaly. 4.CVS: Regular rate and rhythm, Normal s1 and s2. No murmurs, carotid bruits, rubs, or gallops. Radial pulses 2+ bilaterally and symmetric. Dorsalis pedis pulses 2+ bilaterally and symmetric. 2+ capillary refill. No evidence of distant heart sounds. No extremity edema. No evidence of gross hemorrhage. 5.RESP: Airway clear, no obstructions. No abrasions or ecchymosis. Chest movement symmetric with respirations. Notable chest wall tenderness over the right anterior and lateral chest, particularly over the lower ribs for ribs 8 and 9. Trachea midline. No crepitus. No step offs. No paradoxical movements. Lungs are clear to auscultation bilaterally. No rales, rhonchi, wheezing or stridor. Breath sound symmetric. No Sucking chest wounds. No clinical evidence of significant chest trauma. 6.GI: Mild right-sided abdominal tenderness near the rib pain site. No guarding or rebound. No pain at the right lower quadrant or left lower quadrant 7.MSK: Normocephalic Extremities w/o deformity or ttp No cyanosis or clubbing, Normal movement of all extremities 8.Skin: Warm, Dry. No rashes or lesions. 9.Neuro: esl instructional assistant II-XII grossly intact. Sensation grossly intact, no focal neurologic deficits. 10.Psych: (AAO) x3. Appropriate mood and affect Course Vital Signs Temperature 37.0 C 11/18/18 11:48 Pulse 80 11/18/18 11:48 Respiratory Rate 18 11/18/18 11:48 Blood Pressure 149/70 H 11/18/18 11:48 Pulse Oximetry 90 L 11/18/18 11:48 Temperature 37.0 C 11/18/18 11:48 Temperature Source Skin 11/18/18 11:48 Pulse 80 11/18/18 11:48 Respiratory Rate 18 11/18/18 11:48 Respiratory Effort Non-Labored 11/18/18 11:50 Blood Pressure 149/70 H 11/18/18 11:48 Pulse Oximetry 90 L 11/18/18 11:48 Pain Level 3 11/18/18 11:48 Sign Out Sign Out Data: Sign Out Comment: Pending completion of rib block. Last updated by Willam Clark DO at 11/18/18 16:30
[2018-11-18] MEDS: MORPHine 10 MG/ML VIAL 4 MG IVP (13:07)
[2018-11-18] MEDS: Normal Saline 1,000 ML 1000 ML IV (13:07)
[2018-11-18 13:15] LABS: Abs Immature Grans 0.03 k/cumm (0.0-0.09); Absolute Basophil Count 0.03 k/cumm (0.0-0.2); Absolute Lymphocyte Count 2.47 k/cumm (1.2-3.4); Absolute Monocyte Count 1.84 k/cumm (0.11-0.7); Absolute Neutrophil Count 6.17 k/cumm (1.2-6.7); Basophils % 0.3; Eosinophils % 0.9; HCT 44.8 % (40.0-50.0); HGB 14.7 g/dL (13.5-17.5); Immature Grans % 0.3; Lymphocytes % 23.2; Mean Corp. HGB Concentration 32.8 g/dL (32.0-36.0); Mean Corpuscular Hemoglobin 32.1 pg (27.0-33.0); Mean Corpuscular Volume 97.8 fL (80-95); Mean Platelet Volume 8.8 fL (8.0-11.0); Monocytes % 17.3; Platelet Count 450 x1000/uL (130-400); RBC 4.58 m/cumm (4.50-6.00); RBC Distribution Width 12.4 % (11.8-14.1); White Blood Cell Count 10.64 k/cumm (4.4-10.8)
[2018-11-18 13:31] LABS: ALT 33 U/L (12-78); AST 24 U/L (15-37); Albumin 3.7 g/dL (3.4-5.0); Alkaline Phosphatase 78 U/L (46-116); BUN 14 mg/dL (7-18); Bilirubin, Total 0.4 mg/dL (0.2-1.0); CREATININE 1.25 mg/dL (0.70-1.30); Calcium 9.4 mg/dL (8.5-10.1); Chloride 100 mmol/L (98-107); Estimated GFR 58.53 (mL/min/1.73m2); Glucose 111 mg/dL (70-100); Potassium 4.4 mmol/L (3.5-5.1); Sodium 136 mmol/L (136-145); Total Protein 8.1 g/dL (6.4-8.2)
[2018-11-18 13:40] LABS: Diff Comment Diff Reviewed; RBC Morphology Normal
[2018-11-18] MEDS: Normal Saline Flush 10 ML SYR IVP (14:39)
[2018-11-18] MEDS: Omnipaque 350 MG/ML 100 ML BTL IJ (14:39)
--- NOTE | 2018-11-18 15:13 | DI.VRAD_ITS ---
EXAM: CT Chest With Contrast EXAM DATE/TIME: 11/18/2018 12:29 PM CLINICAL HISTORY: 63 years old, male; Signs and symptoms; Other: Right cp after fall/contusion R ribs TECHNIQUE: Imaging protocol: Axial computed tomography images of the chest with intravenous contrast. Coronal and sagittal reformatted images were created and reviewed. Radiation optimization: All CT scans at this facility use at least one of these dose optimization techniques: automated exposure control; mA and/or kV adjustment per patient size (includes targeted exams where dose is matched to clinical indication); or iterative reconstruction. COMPARISON: CT Abdomen^CAP WITH (Adult) 04/27/2018 11:35 PM FINDINGS: There is bibasilar dependent atelectasis/infiltrate. No pleural effusion or pneumothorax. There are mild emphysematous changes. Normal thoracic aorta. No mediastinal hematoma. There are slightly displaced acute fractures of the lateral right eighth and ninth ribs. IMPRESSION: Right eighth and ninth rib fractures. No pneumothorax. EXAM: CT Abdomen and Pelvis With Contrast EXAM DATE/TIME: 11/18/2018 12:29 PM CLINICAL HISTORY: 63 years old, male; Signs and symptoms; Other: Right cp after fall/contusion R ribs TECHNIQUE: Imaging protocol: Axial computed tomography images of the abdomen and pelvis with intravenous contrast. Coronal and sagittal reformatted images were created and reviewed. Radiation optimization: All CT scans at this facility use at least one of these dose optimization techniques: automated exposure control; mA and/or kV adjustment per patient size (includes targeted exams where dose is matched to clinical indication); or iterative reconstruction. Contrast material: OMNIPAQUE 350; Contrast volume: 100 ml; Contrast route: IV; COMPARISON: CT Abdomen^CAP WITH (Adult) 04/27/2018 11:35 PM FINDINGS: No evidence of solid organ injury. There is fatty infiltration of the liver. Status post cholecystectomy. Unremarkable kidneys, adrenal glands, pancreas and spleen. There is a stable infrarenal abdominal aortic aneurysm measuring approximately 3.5 cm. No evidence of dissection or rupture. No evidence of bowel injury or obstruction. Normal appendix. Normal urinary bladder. No free fluid or free air. There is a left hip replacement. No acute fracture. IMPRESSION: No acute findings. Dictated and Authenticated by: Lino Montes De Oca MD. Ordering:TICO Quarles MD
[2018-11-18] MEDS: Bupivacaine LIPOSOME/PF 133 MG/10 ML VIAL IJ (16:20)
[2018-11-18] MEDS: Bupivacaine 0.5% Pres-Free 30 ML VIAL (16:20)
== END 2018-11-18 17:32 | disposition home or self-care (01) ==
PROVIDERS: Emergency Provider Student in an Organized Health Care Education/Training Program; PCP Nurse Practitioner Family
DX: S22.31XA Fracture of one rib, right side, initial encounter for closed fracture (principal); W01.0XXA Fall on same level from slipping, tripping and stumbling without subsequent striking against object, initial encounter; J44.9 Chronic obstructive pulmonary disease, unspecified; Z99.81 Dependence on supplemental oxygen
CPT/HCPCS: 36415; 74177; 80053; 86850; 86900; 86901; 93005; 96361; 96374; 99285; 71260; 85025; 93010; J2270; J3490

== ENCOUNTER → 2018-12-04 12:35 | Outpatient (BNVA) | payer MEDICARE, SELFPAY | PROVIDERS: PCP Nurse Practitioner Family; Referring Provider Nurse Practitioner Family; Visit Provider Student in an Organized Health Care Education/Training Program | DX: R55 Syncope and collapse (principal); R53.81 Other malaise; I10 Essential (primary) hypertension; J44.9 Chronic obstructive pulmonary disease, unspecified; F17.210 Nicotine dependence, cigarettes, uncomplicated | CPT/HCPCS: 99204; 99215 ==

== ENCOUNTER 2018-12-17 00:54 | Outpatient (CLI) | payer MEDICARE, SELFPAY ==
--- NOTE | 2018-12-17 09:38 | DI.US_ITS ---
SYMPTOM/DIAGNOSIS: ABDOMINAL AORTIC ANEURYSM I 71.4 ULTRASOUND ABDOMINAL AORTA: Comparison is made with chest CT dated 18 Nov 2018 which showed a 3.6 cm abdominal aortic aneurysm. There is no change in the size of the abdominal aortic aneurysm measuring maximally 3.7 cm which is within measurement error. Mild calcification and mural thrombus is seen along the moser of the aorta. The proximal iliac arteries are normal in diameter. IMPRESSION: No significant change in abdominal aortic aneurysm, measuring 3.7 cm. in maximal dimension.
== END 2018-12-17 01:14 ==
PROVIDERS: PCP Nurse Practitioner Family; Visit Provider Nurse Practitioner Family
DX: I71.4 Abdominal aortic aneurysm, without rupture (principal)
CPT/HCPCS: 76775

== ENCOUNTER → 2019-01-01 12:24 | Outpatient (BNVA) | payer MEDICARE, SELFPAY | PROVIDERS: PCP Nurse Practitioner Family; Referring Provider Nurse Practitioner Family; Visit Provider Nurse Practitioner Adult Health | DX: R41.89 Other symptoms and signs involving cognitive functions and awareness (principal); J44.9 Chronic obstructive pulmonary disease, unspecified; F17.210 Nicotine dependence, cigarettes, uncomplicated; I10 Essential (primary) hypertension; G47.33 Obstructive sleep apnea (adult) (pediatric) | CPT/HCPCS: 99215 ==

== ENCOUNTER 2019-01-01 13:50 | Outpatient (CLI) | payer MEDICARE, SELFPAY ==
[2019-01-01 15:23] LABS: TSH 2.75 uIU/mL (0.358-3.74)
== END 2019-01-01 14:10 ==
PROVIDERS: PCP Nurse Practitioner Family; Visit Provider Nurse Practitioner Adult Health
DX: R41.89 Other symptoms and signs involving cognitive functions and awareness (principal); R53.81 Other malaise; J44.9 Chronic obstructive pulmonary disease, unspecified; I10 Essential (primary) hypertension; G47.33 Obstructive sleep apnea (adult) (pediatric); F17.210 Nicotine dependence, cigarettes, uncomplicated
CPT/HCPCS: 36415; 99215; 84443

== ENCOUNTER 2019-01-20 01:21 | Outpatient (CLI) | payer MEDICARE, SELFPAY ==
--- NOTE | 2019-01-20 | PFT_ITS ---
PULMONARY FUNCTION TEST REPORT Patient - Rk Flores DATE OF SERVICE January 20, 2019 REQUESTING PROVIDER June Schreiber M.D. INTERPRETATION OF STUDY Spirometry shows moderately severe obstructive airways disease with no significant bronchodilator response. LUNG VOLUMES - Lung volumes show no evidence of restriction. There is moderate hyperinflation and air trapping. DIFFUSION CAPACITY- Severely reduced even when corrected to alveolar volume. AIRWAY RESISTANCE - Normal. IMPRESSION Moderate severe obstructive airways disease with no significant bronchodilator response. This is associated with severe diffusion defect and moderate hyperinflation and air trapping. When this study was compared to previous one from 04/22/14, the patient has a 580 cc decline in FVC, FEV1 has declined by 400 cc. June Schreiber M.D. OLGA/ T- 01/22/2019
[2019-01-20] MEDS: Inhaler, Assist Device 1 EACH MC (13:49)
[2019-01-20] MEDS: Albuterol HFA 18 GM 200 PUFF INH IH (13:50)
== END 2019-01-20 01:41 ==
PROVIDERS: PCP Nurse Practitioner Family; Visit Provider Internal Medicine
DX: J44.9 Chronic obstructive pulmonary disease, unspecified (principal); R06.09 Other forms of dyspnea; Z72.0 Tobacco use
CPT/HCPCS: 94060; 94150; 94726; 94729

== ENCOUNTER 2019-01-22 10:11 | Outpatient (CLI) | payer MEDICARE, SELFPAY ==
--- NOTE | 2019-01-22 08:54 | DI.RAD_ITS ---
SYMPTOMS/DIAGNOSIS: RT THUMB PAIN RIGHT THUMB: Severe degenerative changes involving the first metacarpal multangular joint are demonstrated with joint narrowing, sclerosis and hypertrophic spur formation. There is no evidence of a fracture or dislocation.
== END 2019-01-22 10:31 ==
PROVIDERS: PCP Nurse Practitioner Family; Referring Provider Nurse Practitioner Family; Visit Provider Student in an Organized Health Care Education/Training Program
DX: M18.11 Unilateral primary osteoarthritis of first carpometacarpal joint, right hand (principal); M79.644 Pain in right finger(s); J44.9 Chronic obstructive pulmonary disease, unspecified; F17.210 Nicotine dependence, cigarettes, uncomplicated; I10 Essential (primary) hypertension
CPT/HCPCS: 20600; 99214; 73140; J1030

== ENCOUNTER 2019-02-27 11:48 | Outpatient (REF) | payer MEDICARE, SELFPAY | END 2019-02-27 12:08 | LOC: NCHCN 11:48 | PROVIDERS: PCP Nurse Practitioner Family; Visit Provider Nurse Practitioner Family | DX: R73.01 Impaired fasting glucose (principal) | CPT/HCPCS: 83036 ==

== ENCOUNTER 2019-03-17 08:27 | Outpatient (RCR) | payer MEDICARE, SELFPAY | END 2019-03-24 23:59 | disposition home or self-care (01) | LOC: CR 08:27 | PROVIDERS: PCP Nurse Practitioner Family; Visit Provider Family Medicine | DX: Z51.89 Encounter for other specified aftercare (principal) ==

== ENCOUNTER → 2019-03-27 09:27 | Outpatient (BNVA) | payer MEDICARE, SELFPAY | PROVIDERS: PCP Nurse Practitioner Family; Referring Provider Nurse Practitioner Family; Visit Provider Student in an Organized Health Care Education/Training Program | DX: M18.11 Unilateral primary osteoarthritis of first carpometacarpal joint, right hand (principal); J44.9 Chronic obstructive pulmonary disease, unspecified; F17.210 Nicotine dependence, cigarettes, uncomplicated | CPT/HCPCS: 99213 ==

== ENCOUNTER 2019-04-10 00:12 | Outpatient (CLI) | payer MEDICARE, SELFPAY ==
--- NOTE | 2019-04-10 07:07 | DI.RAD_ITS ---
EXAM: RF JOINT INJECTION FLUORO GUID CLINICAL HISTORY: RT HAND PAIN, M18.11, PRIMARY OA FIRST METACARPAL JOINT, RT HAND. TECHNIQUE: Fluoroscopy was provided for guidance with injection. FINDINGS: Please see procedure note for details. FLUORO TIME: 28.3 seconds
[2019-04-10] MEDS: Omnipaque 300 MG/ML 10 ML BTL IJ (15:58)
[2019-04-10] MEDS: Bupivacaine 0.5% Pres-Free 10 ML VIAL IJ (15:59)
[2019-04-10] MEDS: methylPREDNISolone ACETATE 40 MG/ML VIAL IM (15:59)
--- NOTE | 2019-04-10 16:32 | OPPNE_ITS ---
Date of service: 04/10/19 Time of Service: 14:32 Procedure Note Date of procedure: 04/10/19 Procedure: Right thumb CMC fluoroscopic guided injection Surgeon/Proceduralist/Physician: Derrick Bedolla Procedure Diagnosis: Right thumb CMC arthritis Procedure Indications: Rk is a 63-year-old who is having progressive pain about the right thumb CMC joint. X- rays showed arthritic change. He has tried bracing and other conservative options. An injection in the office was attempted but did not provide any relief. To serve as both diagnostic and therapeutic, I offered a repeat injection under fluoroscopic guidance. I reviewed the risk of the procedure with Rk and he agreed to proceed. Procedure Description: Rk was greeted in the fluoroscopy room. A consent was reviewed the patient and signed to proceed with this procedure. The right hand was placed on the table and prepped with ChloraPrep. Using a 25-gauge needle and fluoroscopic guidance I anesthetized the skin and soft tissues around the base of the thumb. Using 25- gauge needle I then placed this into the first CMC joint. It was very challenging with multiple irregularities noted around the base of the thumb. Using the guidance I was able to place the needle into the joint confirmed with some Omnipaque contrast. I then injected 1 cc of 0.5% bupivacaine and 40 mg of Depo-Medrol. A Band-Aid was applied.
== END 2019-04-10 00:32 ==
PROVIDERS: PCP Nurse Practitioner Family; Visit Provider Student in an Organized Health Care Education/Training Program
DX: M18.11 Unilateral primary osteoarthritis of first carpometacarpal joint, right hand (principal); M79.641 Pain in right hand
CPT/HCPCS: 20600; 77002; 20605; J1030

== ENCOUNTER 2019-04-14 14:00 | Outpatient (RCR) | payer SELFPAY | END 2019-04-24 23:59 | disposition home or self-care (01) | LOC: CR 14:00 | PROVIDERS: PCP Nurse Practitioner Family; Visit Provider Family Medicine | DX: J44.9 Chronic obstructive pulmonary disease, unspecified (principal); Z51.89 Encounter for other specified aftercare ==

== ENCOUNTER 2019-04-23 14:00 | Outpatient (RCR) | payer MEDICARE, SELFPAY | END 2019-04-24 23:59 | disposition home or self-care (01) | LOC: PRC 14:00 | PROVIDERS: PCP Nurse Practitioner Family; Visit Provider Family Medicine | DX: J44.9 Chronic obstructive pulmonary disease, unspecified (principal); Z51.89 Encounter for other specified aftercare | CPT/HCPCS: G0424 ==

== ENCOUNTER 2019-04-25 06:29 | Outpatient (RCR) | payer SELFPAY | END 2019-05-24 23:59 | disposition home or self-care (01) | LOC: CR 06:29 | PROVIDERS: PCP Nurse Practitioner Family; Visit Provider Family Medicine | DX: Z51.89 Encounter for other specified aftercare ==

== ENCOUNTER 2019-05-21 14:00 | Outpatient (RCR) | payer MEDICARE, SELFPAY | END 2019-05-24 23:59 | disposition home or self-care (01) | LOC: PRC 14:00 | PROVIDERS: PCP Nurse Practitioner Family; Visit Provider Family Medicine | DX: J44.9 Chronic obstructive pulmonary disease, unspecified (principal); Z51.89 Encounter for other specified aftercare | CPT/HCPCS: G0424 ==

== ENCOUNTER 2019-06-09 14:00 | Outpatient (RCR) | payer MEDICARE, SELFPAY | END 2019-06-24 23:59 | disposition home or self-care (01) | LOC: PRC 14:00 | PROVIDERS: PCP Nurse Practitioner Family; Visit Provider Family Medicine | DX: J44.9 Chronic obstructive pulmonary disease, unspecified (principal); Z51.89 Encounter for other specified aftercare | CPT/HCPCS: G0424 ==

== ENCOUNTER 2019-06-26 12:15 | Outpatient (REF) | payer OTHER, SELFPAY ==
[2019-06-26 21:50] LABS: Abs Immature Grans 0.04 k/cumm (0.0-0.09); Absolute Basophil Count 0.03 k/cumm (0.0-0.2); Absolute Eosinophil Count 0.36 k/cumm (0.0-0.7); Absolute Lymphocyte Count 2.14 k/cumm (1.2-3.4); Absolute Monocyte Count 1.37 k/cumm (0.11-0.7); Absolute Neutrophil Count 5.93 k/cumm (1.2-6.7); Basophils % 0.3; Eosinophils % 3.6; HCT 45.1 % (40.0-50.0); HGB 14.3 g/dL (13.5-17.5); Immature Grans % 0.4 %; Lymphocytes % 21.7; Mean Corp. HGB Concentration 31.7 g/dL (32.0-36.0); Mean Corpuscular Hemoglobin 31.2 pg (27.0-33.0); Mean Corpuscular Volume 98.5 fL (80-95); Mean Platelet Volume 9.4 fL (8.0-11.0); Monocytes % 13.9; Neutrophils % 60.1; Platelet Count 445 x1000/uL (130-400); RBC 4.58 m/cumm (4.50-6.00); RBC Distribution Width 12.9 % (11.8-14.1); White Blood Cell Count 9.87 k/cumm (4.4-10.8)
[2019-06-26 22:19] LABS: ALT 33 U/L (16-63); AST 25 U/L (15-37); Albumin 3.7 g/dL (3.4-5.0); Alkaline Phosphatase 86 U/L (46-116); Anion Gap 12.7 mmol/L (3-11); BUN 8 mg/dL (7-18); Bilirubin, Total 0.3 mg/dL (0.2-1.0); CO2 25.3 mmol/L (21.0-32.0); CREATININE 1.15 mg/dL (0.70-1.30); Calcium 9.2 mg/dL (8.5-10.1); Chloride 104 mmol/L (98-107); Glucose 86 mg/dL (74-106); Potassium 4.5 mmol/L (3.5-5.1); Sodium 142 mmol/L (136-145); Total Protein 7.7 g/dL (6.4-8.2)
== END 2019-06-26 12:35 ==
LOC: NCHCN 12:15
PROVIDERS: PCP Nurse Practitioner Family; Visit Provider Nurse Practitioner Family
DX: R53.83 Other fatigue (principal); R73.09 Other abnormal glucose; R19.7 Diarrhea, unspecified; R51 Headache; G47.00 Insomnia, unspecified; G47.33 Obstructive sleep apnea (adult) (pediatric); M19.90 Unspecified osteoarthritis, unspecified site; F31.76 Bipolar disorder, in full remission, most recent episode depressed; J44.9 Chronic obstructive pulmonary disease, unspecified
CPT/HCPCS: 80053; 83036; 85025

== ENCOUNTER 2019-06-27 19:48 | Outpatient (RCR) | payer OTHER, SELFPAY | END 2019-07-25 23:59 | disposition home or self-care (01) | LOC: PRC 19:48 | PROVIDERS: PCP Nurse Practitioner Family; Visit Provider Family Medicine | DX: J44.9 Chronic obstructive pulmonary disease, unspecified (principal); Z51.89 Encounter for other specified aftercare | CPT/HCPCS: G0424 ==